=== PATIENT | female | born 1940 | race Two or more races ===

== ENCOUNTER 2023-06-24 14:55 | Inpatient (IN) | payer MEDICARE, OTHER ==
[~2023-06-24] VITALS: Ht 152.4 cm; Wt 68.0 kg
[2023-06-24] MEDS ORDERED: HYDROMORPHONE 1 MG/1 ML DISP.SYRIN IV ONE (15:15)
[2023-06-24] MEDS ORDERED: IV NORMAL SALINE 1000 ML BAG IV ONE (15:15)
[2023-06-24] MEDS ORDERED: PROCHLORPERAZINE EDISYLATE 10 MG/2 ML VIAL IV ONE (15:15)
[2023-06-24] MEDS ORDERED: HYDROMORPHONE 1 MG/1 ML DISP.SYRIN ONE (15:22)
[2023-06-24] MEDS ORDERED: PROCHLORPERAZINE EDISYLATE 10 MG/2 ML VIAL ONE (15:22)
[2023-06-24 15:30] LABS: BASOPHILS % (AUTO) 0.2 % (0.0-2.0); HEMATOCRIT 38.6 % (31.2-41.9); HEMOGLOBIN 12.9 g/dL (10.9-14.3); LYMPHOCYTES # (AUTO) 1.2 K/uL (0.8-4.8); LYMPHOCYTES % (AUTO) 8.2 % (20.5-51.5); MEAN CORPUSCULAR HEMOGLOBIN 28.9 uug (24.7-32.8); MEAN CORPUSCULAR HGB CONC 34 g/dL (32.3-35.6); MONOCYTES # (AUTO) 0.2 K/uL (0.1-1.30); MONOCYTES % (AUTO) 1.6 % (0.0-11.0); NEUTROPHILS # (AUTO) 12.8 K/uL (1.8-8.9); PLATELET COUNT (AUTO) 270 K/uL (179-408); RED BLOOD CELL COUNT(AUTO) 4.48 MIL/uL (3.63-4.92); RED CELL DISTRIBUTION WIDTH 14.6 % (12.3-17.7); WHITE BLOOD COUNT (AUTO) 14.3 K/uL (3.8-11.8)
[2023-06-24 15:46] LABS: DIFFERENTIAL COMMENT 1
[2023-06-24 15:50] LABS: CALCIUM 9.1 mg/dL (8.5-10.1); CARBON DIOXIDE 26 mmol/L (21-32); CHLORIDE 103 mmol/L (98-107); CREATININE 0.8 mg/dL (0.6-1.3); GLUCOSE 233 mg/dL (74-106); POTASSIUM 3.1 mmol/L (3.5-5.1); SODIUM SERUM 140 mmol/L (136-145); UREA NITROGEN, BLOOD 10 mg/dL (7-18)
[2023-06-24] MEDS ORDERED: IV NORMAL SALINE 250 ML IV ONE (15:56)
[2023-06-24] MEDS ORDERED: SWABABLE VALVE TRANSFER SET EA MC ONE (15:56)
[2023-06-24] MEDS ORDERED: IOHEXOL 300MG/ML 100 ML INFUS..BTL ONE (15:56)
[2023-06-24 16:09] LABS: ALANINE AMINOTRANSFERASE 13 U/L (14-59); ALBUMIN 3.9 g/dL (3.4-5.0); ALKALINE PHOSPHATASE 82 U/L (50-136); ASPARTATE AMINOTRANSFERASE 15 U/L (15-37); BILIRUBIN,DIRECT 0.2 mg/dL (0.0-0.2); BILIRUBIN,TOTAL 0.6 mg/dL (0.2-1.0); LIPASE 40 U/L (16-77); TOTAL PROTEIN, SERUM 7.8 g/dL (6.4-8.2)
[2023-06-24 16:17] LABS: LACTIC ACID 2.8 mmol/L (0.4-2.0)
[2023-06-24] MEDS: POTASSIUM CHLORIDE 50 ML IV SCH ×3 (16:38→21:00)
[2023-06-24 17:10] LABS: *BILIRUBIN,URIN NEGATIVE (NEGATIVE); *BLOOD, URINE 1+ (NEGATIVE); *COLOR,URINE YELLOW (YELLOW); *KETONES,URINE 1+ (NEGATIVE); *PROTEIN,URINE NEGATIVE (NEGATIVE); *UROBILINOGEN,URINE 0.2 E.U./dl (NORMAL); LEUKOCYTE ESTERASE ,URINE TRACE (NEGATIVE); NITRITE, URINE NEGATIVE (NEGATIVE); PH,URINE 8.5 (5.0-8.0); UGLUCOSE TRACE (NEGATIVE)
[2023-06-24 17:20] LABS: *CLARITY,URINE HAZY (CLEAR)
[2023-06-24] MEDS ORDERED: levoFLOXacin 500 MG/D5W 100ML PIGGYBACK IV ONE ×2 (17:30→18:15)
[2023-06-24 17:32] LABS: BACTERIA,URINE FEW /HPF (NONE SEEN); SQUAMOUS EPITHELIAL CELL,UR FEW /HPF (NONE SEEN)
[2023-06-24] MEDS ORDERED: MAGNESIUM HYDROXIDE 30 ML LIQUID UDC PO PRN (18:15)
[2023-06-24] MEDS ORDERED: MORPHINE SULFATE 2 MG/1 ML DISP.SYRIN IV PRN (18:15)
[2023-06-24] MEDS ORDERED: ACETAMINOPHEN 325 MG TABLET PO PRN (18:15)
[2023-06-24] MEDS ORDERED: REMEDY ESSENTIAL ZINC PASTE 113 GM TP PRN (18:15)
[2023-06-24] MEDS ORDERED: INSULIN REGULAR, HUMAN 300 UNIT/3 ML VIAL SQ PRN (18:15)
[2023-06-24] MEDS ORDERED: HYDROCODONE/APAP 10-325 MG TABLET PO PRN (18:15)
[2023-06-24] MEDS ORDERED: DEXTROSE 50% 50 ML DISP.SYRIN IV PRN (18:15)
[2023-06-24] MEDS ORDERED: ONDANSETRON 4 MG/2 ML VIAL ONE (21:19)
[2023-06-24] MEDS: ONDANSETRON 4 MG/2 ML VIAL IV PRN (21:23)
[2023-06-24 22:06] VITALS: BP 146/76; TEMP 97.7; O2SAT 96
[2023-06-24] MEDS: IV NS 1000 ML 1,000 ML IV PRN (23:01)
[2023-06-24] MEDS: BLOOD SUGAR DIAGNOSTIC 1 EACH STRIP VI SCH (23:15)
[2023-06-24] MEDS: ENOXAPARIN SODIUM 30 MG/0.3 ML DISP.SYRIN SQ SCH (23:17)
[2023-06-24] MEDS ORDERED: levoFLOXacin 500 MG/D5W 100 ML ONE (23:57)
[2023-06-25 04:39] VITALS: BP 137/65; TEMP 97.9; O2SAT 95
[2023-06-25] MEDS: BLOOD SUGAR DIAGNOSTIC 1 EACH STRIP VI SCH ×4 (06:46→21:21)
[2023-06-25 08:06] LABS: BASOPHILS % (AUTO) 0.2 % (0.0-2.0); EOSINOPHILS % (AUTO) 0.1 % (0.0-7.0); HEMATOCRIT 37.7 % (31.2-41.9); HEMOGLOBIN 12.8 g/dL (10.9-14.3); LYMPHOCYTES # (AUTO) 0.8 K/uL (0.8-4.8); LYMPHOCYTES % (AUTO) 6.7 % (20.5-51.5); MEAN CORPUSCULAR HEMOGLOBIN 29.1 uug (24.7-32.8); MEAN CORPUSCULAR HGB CONC 34 g/dL (32.3-35.6); MEAN CORPUSCULAR VOLUME 85.9 fL (75.5-95.3); MONOCYTES # (AUTO) 0.5 K/uL (0.1-1.30); MONOCYTES % (AUTO) 4.2 % (0.0-11.0); NEUTROPHILS # (AUTO) 11.1 K/uL (1.8-8.9); NEUTROPHILS % (AUTO) 88.8 % (38.5-71.5); PLATELET COUNT (AUTO) 261 K/uL (179-408); RED BLOOD CELL COUNT(AUTO) 4.39 MIL/uL (3.63-4.92); RED CELL DISTRIBUTION WIDTH 14.5 % (12.3-17.7); WHITE BLOOD COUNT (AUTO) 12.5 K/uL (3.8-11.8)
[2023-06-25 08:22] LABS: DIFFERENTIAL COMMENT 1
[2023-06-25 08:25] LABS: CALCIUM 8.5 mg/dL (8.5-10.1); CARBON DIOXIDE 28 mmol/L (21-32); CHLORIDE 102 mmol/L (98-107); CHOLESTEROL 171 mg/dL (<200); CREATININE 0.7 mg/dL (0.6-1.3); GLUCOSE 124 mg/dL (74-106); HDL CHOLESTEROL 58 mg/dL (40-60); MAGNESIUM 1.8 mg/dL (1.8-2.4); PHOSPHOROUS 3.6 mg/dL (2.5-4.9); POTASSIUM 3.7 mmol/L (3.5-5.1); SODIUM SERUM 140 mmol/L (136-145); TRIGLYCERIDES 60 MG/DL (30-150); UREA NITROGEN, BLOOD 9 mg/dL (7-18)
[2023-06-25] MEDS: PANTOPRAZOLE SODIUM 40 MG VIAL IV SCH (09:17)
[2023-06-25] MEDS: CEFTRIAXONE 1 G in IV DEXTROSE 5% 50 ML IV SCH ×2 (09:19→19:14)
[2023-06-25] MEDS ORDERED: AMLO-212 PO (10:38)
[2023-06-25] MEDS ORDERED: LEVO137T2 PO (10:38)
[2023-06-25] MEDS: METRONIDAZOLE 500 MG/NS 100ML 500 MG in PREMIXED 1 EACH IV SCH ×2 (10:47→18:00)
[2023-06-25] MEDS: ONDANSETRON 4 MG/2 ML VIAL IV PRN (10:48)
[2023-06-25 11:13] VITALS: BP 143/61; TEMP 98.2; O2SAT 97
[2023-06-25] MEDS: IV NS 1000 ML 1,000 ML IV PRN (14:45)
[2023-06-25 15:37] VITALS: BP 135/62; TEMP 98.3; O2SAT 95
[2023-06-25 17:45] VITALS: BP 114/66; TEMP 98.6; O2SAT 96
[2023-06-25 19:25] VITALS: BP 130/61; TEMP 98.1; O2SAT 95
[2023-06-25] MEDS: ENOXAPARIN SODIUM 30 MG/0.3 ML DISP.SYRIN SQ SCH (21:21)
[2023-06-26] MEDS: METRONIDAZOLE 500 MG/NS 100ML 500 MG in PREMIXED 1 EACH IV SCH (02:08)
[2023-06-26 05:00] VITALS: BP 124/67; TEMP 98.3; O2SAT 96
[2023-06-26] MEDS: IV NS 1000 ML 1,000 ML IV PRN (06:07)
[2023-06-26 06:52] LABS: BASOPHILS % (AUTO) 0.4 % (0.0-2.0); EOSINOPHILS % (AUTO) 0.6 % (0.0-7.0); HEMATOCRIT 36.2 % (31.2-41.9); LYMPHOCYTES # (AUTO) 1.4 K/uL (0.8-4.8); LYMPHOCYTES % (AUTO) 17.8 % (20.5-51.5); MEAN CORPUSCULAR HEMOGLOBIN 28.7 uug (24.7-32.8); MEAN CORPUSCULAR HGB CONC 33 g/dL (32.3-35.6); MEAN CORPUSCULAR VOLUME 86.2 fL (75.5-95.3); MONOCYTES # (AUTO) 0.5 K/uL (0.1-1.30); MONOCYTES % (AUTO) 6.4 % (0.0-11.0); NEUTROPHILS # (AUTO) 5.9 K/uL (1.8-8.9); NEUTROPHILS % (AUTO) 74.8 % (38.5-71.5); PLATELET COUNT (AUTO) 218 K/uL (179-408); RED CELL DISTRIBUTION WIDTH 14.6 % (12.3-17.7); WHITE BLOOD COUNT (AUTO) 7.8 K/uL (3.8-11.8)
[2023-06-26] MEDS: BLOOD SUGAR DIAGNOSTIC 1 EACH STRIP VI SCH ×2 (07:11→11:30)
[2023-06-26 07:13] LABS: CALCIUM 8.6 mg/dL (8.5-10.1); CARBON DIOXIDE 30 mmol/L (21-32); CHLORIDE 110 mmol/L (98-107); CREATININE 0.8 mg/dL (0.6-1.3); GLUCOSE 99 mg/dL (74-106); POTASSIUM 3.4 mmol/L (3.5-5.1); SODIUM SERUM 146 mmol/L (136-145); UREA NITROGEN, BLOOD 9 mg/dL (7-18)
[2023-06-26 07:15] LABS: DIFFERENTIAL COMMENT 1
[2023-06-26] MEDS: PANTOPRAZOLE SODIUM 40 MG VIAL IV SCH (08:57)
[2023-06-26] MEDS ORDERED: ACIDOPHILUS/BULGARICUS CHEW TAB PO SCH (09:15)
[2023-06-26] MEDS ORDERED: POTASSIUM CHLORIDE 20 MEQ TAB.PRT.SR PO ONE (09:15)
[2023-06-26] MEDS ORDERED: SULFAMETH/TRIMETH 800/160 MG TABLET PO SCH (09:53)
[2023-06-26] MEDS ORDERED: ATOR10TA PO (15:47)
[2023-06-26] MEDS ORDERED: AMOXICILLIN-CLAVUL 875-125MG TABLET PO SCH (21:00)
[2023-06-27] MEDS ORDERED: PANTOPRAZOLE SODIUM 40 MG TABLET.DR PO SCH (07:00)
[2023-06-27] MEDS ORDERED: AMOX-430 PO (08:55)
== END 2023-06-26 15:29 | DRG 372 ==
LOC: ER 14:55 → MEDSURG3 20:39
PROVIDERS: ADMIT Nurse Practitioner Acute Care; ATTEND Nurse Practitioner Acute Care
DX: A04.9 Bacterial intestinal infection, unspecified (principal); N13.6 Pyonephrosis; R33.9 Retention of urine, unspecified; B96.89 Other specified bacterial agents as the cause of diseases classified elsewhere; G90.8 Other disorders of autonomic nervous system; E03.9 Hypothyroidism, unspecified; S00.83XA Contusion of other part of head, initial encounter; W19.XXXA Unspecified fall, initial encounter; Y92.89 Other specified places as the place of occurrence of the external cause; E87.6 Hypokalemia; E11.9 Type 2 diabetes mellitus without complications; I44.0 Atrioventricular block, first degree
CPT/HCPCS: 36415; 70450; 71045; 83605; 83690; 83735; 84100; 84443; 84484; 85025; 93005; 93307; A4606; A4663; C9113; G0378; J0696; J0780; J1170; J1650; J1815; J1956; J2270; J2405; J3490; J7040; Q9967